=== PATIENT | female | born 1970 | race Two or more races ===

== ENCOUNTER 2021-03-13 23:52 | Emergency (ER) | payer SELFPAY ==
[~2021-03-13] VITALS: Ht 160 cm; Wt 88.6 kg
[2021-03-14 05:11] VITALS: BP 123/62
== END 2021-03-14 05:11 | disposition left against medical advice (07) ==
LOC: ER 23:52
DX: F10.129 Alcohol abuse with intoxication, unspecified (principal); Y90.9 Presence of alcohol in blood, level not specified; Z53.21 Procedure and treatment not carried out due to patient leaving prior to being seen by health care provider